=== PATIENT | female | born 1980 | race Caucasian/White ===

== ENCOUNTER 2018-05-15 10:00 | Emergency (ER) | payer MEDICAID ==
[~2018-05-15] VITALS: Ht 165.1 cm; Wt 63.6 kg
[~2018-05-15 10:00] MED LIST: PRED50TA PO
[2018-05-15] MEDS ORDERED: ketorolac tromethamine 15mg/ml inj. IV ONE (10:55)
[2018-05-15] MEDS ORDERED: metoclopramide 5 mg/ml inj IV ONE (10:55)
[2018-05-15] MEDS ORDERED: diphenhydrAMINE 50 mg/ml inj IV ONE (10:55)
[2018-05-15] MEDS ORDERED: normal saline 1000ml 1,000 ML IV STA (11:51)
[2018-05-15 11:56] LABS: BASOPHILS % (AUTO) 0.2 % (0-1); EOSINOPHILS % (AUTO) 0 % (0-6); HEMATOCRIT 50.1 % (35.0-45.0); LYMPHOCYTES % (AUTO) 5.8 % (21-51); MEAN CORPUSCULAR HGB CONC 33.9 % (33.0-36.5); MEAN CORPUSCULAR VOLUME 94.5 FL (78-98); MONOCYTES # (AUTO) 0.5 X10'3 (0-0.9); MONOCYTES % (AUTO) 3.2 % (2-12); NEUTROPHILS # (AUTO) 15.1 X10'3 (1.8-7.7); NEUTROPHILS % (AUTO) 90.8 % (42-75); PLATELET COUNT 176 X10'3 (140-440); RED CELL DISTRIBUTION WIDTH 12.9 % (11.5-14.5); WHITE BLOOD COUNT 16.7 X10'3 (4.5-11.0)
[2018-05-15 12:04] LABS: ALANINE AMINOTRANSFERASE 48 U/L (12-78); ALBUMIN 4.2 G/DL (3.4-5.0); ALBUMIN/GLOBULIN RATIO 1.1 (1.1-1.5); ALKALINE PHOSPHATASE 73 IU/L (46-116); ANION GAP 17 (8-16); ASPARTATE AMINO TRANSFERASE 43 U/L (10-37); BILIRUBIN,TOTAL 0.6 MG/DL (0.1-1.0); BLOOD UREA NITROGEN 9 MG/DL (7-18); BUN/CREATININE RATIO 11.3 (6.6-38.0); CHLORIDE 97 MMOL/L (99-107); GLUCOSE 159 MG/DL (70-104); LIPASE 84 U/L (73-393); SODIUM 140 MMOL/L (135-145); TOTAL CARBON DIOXIDE 25.6 MMOL/L (24-32); TOTAL PROTEIN 7.9 G/DL (6.4-8.2); eGFR 81 ML/MIN
[2018-05-15 12:06] LABS: INR 1.1 INR; PARTIAL THROMBOPLASTIN TIME 23 SECONDS (22-32); PROTHROMBIN TIME 11.4 SECONDS (9.0-12.0)
[2018-05-15] MEDS ORDERED: potassium chloride 10mEq CAPSULE.SA PO STA (12:07)
[2018-05-15] MEDS ORDERED: potassium chloride 10mEq ER tablet PO ONE (12:10)
--- NOTE | 2018-05-15 12:30 | NUR ---
Albert informed that patient is still vomiting. requested another nausea mediaction
[2018-05-15 12:45] LABS: URINE HCG NEGATIVE (NEG)
[2018-05-15] MEDS ORDERED: ONDA4TAB6 PO (13:12)
[2018-05-15 13:51] VITALS: BP 137/78
[2018-05-16] MEDS ORDERED: POTA20TA19 PO (18:02)
[2018-05-16] MEDS ORDERED: METO10TA3 PO (20:58)
== END 2018-05-15 13:53 | disposition home or self-care (01) ==
LOC: ER 10:00
DX: K29.00 Acute gastritis without bleeding (principal); E86.0 Dehydration; F12.90 Cannabis use, unspecified, uncomplicated; Z88.0 Allergy status to penicillin; Z79.899 Other long term (current) drug therapy
CPT/HCPCS: 36415; 80053; 81025; 83690; 85025; 85610; 85730; 96361; 96374; 96375; 99283; J1200; J1885; J2765; J7030; 99284

== ENCOUNTER 2018-05-16 16:09 | Emergency (ER) | payer MEDICAID ==
[~2018-05-16] VITALS: Ht 175.3 cm; Wt 63.6 kg
[~2018-05-16 16:09] MED LIST changes: +ONDA4TAB6 PO
[2018-05-16] MEDS ORDERED: normal saline 1000ML IV soln IVB ONE ×3 (16:35→16:40)
[2018-05-16] MEDS ORDERED: haloperidol lactate 5mg/ml inj IM ONE (16:35)
[2018-05-16] MEDS ORDERED: LORazepam 2 mg/ml vial IV ONE ×2 (16:35→16:40)
[2018-05-16] MEDS ORDERED: diphenhydrAMINE 50 mg/ml inj IV ONE (16:35)
[2018-05-16 16:58] LABS: BASOPHILS # (AUTO) 0.1 X10'3 (0-0.2); BASOPHILS % (AUTO) 0.5 % (0-1); EOSINOPHILS % (AUTO) 0 % (0-6); HEMOGLOBIN 17.3 g/dl (12.0-16.0); LYMPHOCYTES # (AUTO) 1.2 X10'3 (1.1-4.8); LYMPHOCYTES % (AUTO) 7.5 % (21-51); MEAN CORPUSCULAR HEMOGLOBIN 31.7 PG (27.0-31.0); MEAN CORPUSCULAR HGB CONC 33.3 % (33.0-36.5); MEAN CORPUSCULAR VOLUME 95.3 FL (78-98); MEAN PLATELET VOLUME 9.4 FL (7.4-10.4); MONOCYTES # (AUTO) 0.6 X10'3 (0-0.9); MONOCYTES % (AUTO) 3.5 % (2-12); NEUTROPHILS # (AUTO) 14.5 X10'3 (1.8-7.7); NEUTROPHILS % (AUTO) 88.5 % (42-75); PLATELET COUNT 182 X10'3 (140-440); RED BLOOD COUNT 5.46 X10'6 (4.20-5.60); RED CELL DISTRIBUTION WIDTH 12.9 % (11.5-14.5); WHITE BLOOD COUNT 16.4 X10'3 (4.5-11.0)
[2018-05-16 17:13] LABS: ALANINE AMINOTRANSFERASE 45 U/L (12-78); ALBUMIN 4.5 G/DL (3.4-5.0); ALBUMIN/GLOBULIN RATIO 1.1 (1.1-1.5); ALKALINE PHOSPHATASE 79 IU/L (46-116); ANION GAP 18 (8-16); ASPARTATE AMINO TRANSFERASE 40 U/L (10-37); BILIRUBIN,TOTAL 1.3 MG/DL (0.1-1.0); BLOOD UREA NITROGEN 13 MG/DL (7-18); BUN/CREATININE RATIO 12.3 (6.6-38.0); CALCIUM 10.3 MG/DL (8.5-10.1); CHLORIDE 94 MMOL/L (99-107); CREATININE 1.06 MG/DL (0.40-0.90); GLUCOSE 109 MG/DL (70-104); LIPASE 94 U/L (73-393); SODIUM 140 MMOL/L (135-145); TOTAL CARBON DIOXIDE 28.3 MMOL/L (24-32); TOTAL PROTEIN 8.5 G/DL (6.4-8.2); eGFR 58 ML/MIN
[2018-05-16 17:23] LABS: POTASSIUM 2.6 MMOL/L (3.5-5.1)
[2018-05-16] MEDS: potassium 10mEq/100ml NS w/LIDOcaine (10mg/bag) IV SCH ×2 (17:53→18:47)
[2018-05-16] MEDS ORDERED: POTA20TA19 PO (18:02)
[2018-05-16] MEDS ORDERED: METO10TA3 PO (20:58)
[2018-05-16 21:07] VITALS: BP 110/76
== END 2018-05-16 21:09 | disposition home or self-care (01) ==
LOC: ER 16:10
DX: E86.0 Dehydration (principal); E87.6 Hypokalemia; R11.2 Nausea with vomiting, unspecified; F17.210 Nicotine dependence, cigarettes, uncomplicated; F12.10 Cannabis abuse, uncomplicated; Z79.899 Other long term (current) drug therapy
CPT/HCPCS: 36415; 80053; 83690; 85025; 96361; 96365; 96366; 96372; 96375; 96376; 99283; J1200; J1630; J2060; J3480; J7030

== ENCOUNTER 2019-02-10 14:36 | Emergency (ER) | payer MEDICAID ==
[~2019-02-10] VITALS: Ht 175.3 cm; Wt 64.7 kg
[2019-02-10 16:16] LABS: BASOPHILS # (AUTO) 0.1 X10'3 (0-0.2); BASOPHILS % (AUTO) 0.7 % (0-1); EOSINOPHILS # (AUTO) 0.7 X10'3 (0-0.9); EOSINOPHILS % (AUTO) 7.5 % (0-6); HEMATOCRIT 47.5 % (35.0-45.0); HEMOGLOBIN 16.1 g/dl (12.0-16.0); LYMPHOCYTES # (AUTO) 2.3 X10'3 (1.1-4.8); LYMPHOCYTES % (AUTO) 26.2 % (21-51); MEAN CORPUSCULAR HEMOGLOBIN 32.5 PG (27.0-31.0); MEAN CORPUSCULAR HGB CONC 33.9 g/dL (33.0-36.5); MEAN CORPUSCULAR VOLUME 95.6 FL (78-98); MEAN PLATELET VOLUME 8.8 FL (7.4-10.4); MONOCYTES # (AUTO) 0.5 X10'3 (0-0.9); MONOCYTES % (AUTO) 6.2 % (2-12); NEUTROPHILS # (AUTO) 5.1 X10'3 (1.8-7.7); NEUTROPHILS % (AUTO) 59.4 % (42-75); PLATELET COUNT 203 X10'3 (140-440); RED BLOOD COUNT 4.97 X10'6 (4.20-5.60); RED CELL DISTRIBUTION WIDTH 12.7 % (11.5-14.5); WHITE BLOOD COUNT 8.7 X10'3 (4.5-11.0)
[2019-02-10 16:39] LABS: ALANINE AMINOTRANSFERASE 28 U/L (12-78); ALBUMIN/GLOBULIN RATIO 1.1 (1.1-1.5); ALKALINE PHOSPHATASE 68 IU/L (46-116); ANION GAP 9 (8-16); ASPARTATE AMINO TRANSFERASE 21 U/L (10-37); BILIRUBIN,TOTAL 0.4 MG/DL (0.1-1.0); BLOOD UREA NITROGEN 6 MG/DL (7-18); BUN/CREATININE RATIO 7.2 (6.6-38.0); CALCIUM 10.3 MG/DL (8.5-10.1); CHLORIDE 107 MMOL/L (99-107); CREATININE 0.83 MG/DL (0.40-0.90); GLUCOSE 91 MG/DL (70-104); SODIUM 140 MMOL/L (135-145); TOTAL CARBON DIOXIDE 24.3 MMOL/L (24-32); TOTAL PROTEIN 7.6 G/DL (6.4-8.2); eGFR 77 ML/MIN
[2019-02-10] MEDS ORDERED: predniSONE 20 mg tablet PO ONE (17:05)
[2019-02-10] MEDS ORDERED: ipratropium/albuterol 3ml nebule NEB ONE (17:05)
[2019-02-10] MEDS ORDERED: albuterol 2.5 MG/3 ML nebule NEB ONE (17:05)
[2019-02-10] MEDS ORDERED: ALB0.5UD IH (17:13)
[2019-02-10] MEDS ORDERED: PRED20TA PO (17:13)
[2019-02-10] MEDS ORDERED: ALBU8HFA PO (17:13)
[2019-02-10] MEDS ORDERED: AZIT-72 PO (17:13)
[2019-02-10 18:02] VITALS: BP 136/64
== END 2019-02-10 18:21 | disposition home or self-care (01) ==
LOC: ER 14:36
DX: J45.909 Unspecified asthma, uncomplicated (principal); F12.90 Cannabis use, unspecified, uncomplicated; Z87.891 Personal history of nicotine dependence; Z87.01 Personal history of pneumonia (recurrent); Z88.0 Allergy status to penicillin; Z79.899 Other long term (current) drug therapy
CPT/HCPCS: 36415; 71046; 80053; 83605; 85025; 87040; 93005; 94640; 94760; 99284; J7512

== ENCOUNTER 2019-03-01 09:49 | Emergency (ER) | payer MEDICAID ==
[~2019-03-01 09:49] MED LIST changes: +ALB0.5UD IH; +ALBU8HFA PO; +AZIT-72 PO
--- NOTE | 2019-03-01 10:18 | NUR ---
PT PLACED IN GOWN AD PUT ON PULSE OX AND BP CUFF
[2019-03-01] MEDS ORDERED: predniSONE 20 mg tablet PO ONE (10:45)
[2019-03-01] MEDS ORDERED: albuterol 2.5 MG/3 ML nebule NEB ONE (10:45)
[2019-03-01] MEDS ORDERED: ipratropium/albuterol 3ml nebule NEB ONE (10:45)
[2019-03-01] MEDS ORDERED: PRED20TA PO (11:15)
[2019-03-01] MEDS ORDERED: LEVO750T21 PO (11:15)
[2019-03-01] MEDS ORDERED: ALBU18HF2 INH (11:15)
[2019-03-01] MEDS ORDERED: ROBCFL PO (11:20)
[2019-03-01 11:24] VITALS: BP 123/63
== END 2019-03-01 11:25 | disposition home or self-care (01) ==
LOC: ER 09:49
DX: J20.9 Acute bronchitis, unspecified (principal); J44.9 Chronic obstructive pulmonary disease, unspecified; F12.90 Cannabis use, unspecified, uncomplicated; Z87.891 Personal history of nicotine dependence; Z60.2 Problems related to living alone; Z88.0 Allergy status to penicillin; Z79.899 Other long term (current) drug therapy
CPT/HCPCS: 71045; 93005; 94640; 94760; 99283; J7512

== ENCOUNTER 2021-09-26 00:52 | Emergency (ER) | payer MEDICAID ==
[~2021-09-26] VITALS: Ht 175.3 cm; Wt 68.1 kg
[~2021-09-26 00:52] MED LIST changes: -ALB0.5UD IH; +ALBU18HF2 INH; -ALBU8HFA PO; -AZIT-72 PO
[2021-09-26] MEDS: oxyCODONE/APAP 10/325mg tablet PO ONE (02:05)
[2021-09-26] MEDS: ketorolac trometh. 30mg/ml inj. IM ONE (02:05)
[2021-09-26] MEDS ORDERED: OXYC-150 PO (02:06)
[2021-09-26] MEDS: morphine 2 MG/ML inj. syringe IV ONE (02:12)
[2021-09-26 02:48] VITALS: BP 119/86
== END 2021-09-26 02:49 | disposition home or self-care (01) ==
LOC: ER 00:53
DX: S42.032A Displaced fracture of lateral end of left clavicle, initial encounter for closed fracture (principal); F12.90 Cannabis use, unspecified, uncomplicated; Z87.01 Personal history of pneumonia (recurrent); Z72.89 Other problems related to lifestyle; Z60.2 Problems related to living alone; Z88.0 Allergy status to penicillin; Z79.899 Other long term (current) drug therapy; W10.9XXA Fall (on) (from) unspecified stairs and steps, initial encounter; Y93.89 Activity, other specified; Y92.89 Other specified places as the place of occurrence of the external cause; Y99.8 Other external cause status
CPT/HCPCS: 73030; 96372; 99284; J1885

== ENCOUNTER 2023-05-12 16:44 | Emergency (ER) | payer MEDICAID ==
[~2023-05-12] VITALS: Ht 175.3 cm; Wt 59.1 kg
[~2023-05-12 16:44] MED LIST changes: +OXYC-150 PO
[2023-05-12 17:09] LABS: BASOPHILS # (AUTO) 0.2 X10'3 (0-0.2); BASOPHILS % (AUTO) 1.1 % (0-1); EOSINOPHILS % (AUTO) 0.1 % (0-6); HEMATOCRIT 43.4 % (35.0-45.0); HEMOGLOBIN 14.6 g/dl (12.0-16.0); LYMPHOCYTES # (AUTO) 1.1 X10'3 (1.1-4.8); MEAN CORPUSCULAR HEMOGLOBIN 30.7 PG (27.0-31.0); MEAN CORPUSCULAR HGB CONC 33.7 g/dL (33.0-36.5); MEAN PLATELET VOLUME 9.1 FL (7.4-10.4); MONOCYTES # (AUTO) 0.3 X10'3 (0-0.9); MONOCYTES % (AUTO) 1.8 % (2-12); PLATELET COUNT 227 X10'3 (140-440); RED BLOOD COUNT 4.77 X10'6 (4.20-5.60); WHITE BLOOD COUNT 15.6 X10'3 (4.5-11.0)
[2023-05-12 17:23] LABS: ALANINE AMINOTRANSFERASE 20 U/L (12-78); ALBUMIN 4.3 G/DL (3.4-5.0); ALBUMIN/GLOBULIN RATIO 1.2 (1.1-1.5); ALKALINE PHOSPHATASE 61 IU/L (46-116); ANION GAP 14 (8-16); ASPARTATE AMINO TRANSFERASE 17 U/L (10-37); BILIRUBIN,TOTAL 0.7 MG/DL (0.1-1.0); BLOOD UREA NITROGEN 15 MG/DL (7-18); BUN/CREATININE RATIO 14.3 (10.0-20.0); CHLORIDE 102 MMOL/L (99-107); CREATININE 1.05 MG/DL (0.40-0.90); GLUCOSE 147 MG/DL (70-104); LIPASE 16 U/L (16-77); POTASSIUM 3.3 MMOL/L (3.5-5.1); SODIUM 141 MMOL/L (135-145); TOTAL CARBON DIOXIDE 25.1 MMOL/L (24-32); TOTAL PROTEIN 7.9 G/DL (6.4-8.2); eCRCL 65 ML/MIN; eGFR 57 ML/MIN
[2023-05-12] MEDS ORDERED: ketorolac trometh inj. 60 MG/2 ML VIAL IM ONE (18:30)
[2023-05-12] MEDS ORDERED: NAPR-56 PO (18:30)
[2023-05-12] MEDS ORDERED: ONDA4TAB12 PO (18:30)
[2023-05-12] MEDS ORDERED: metoclopramide 5 mg/ml inj IM ONE (18:30)
[2023-05-12] MEDS ORDERED: normal saline 1000ML IV soln IVB ONE (18:40)
[2023-05-12 19:07] VITALS: BP 129/57; PULSE 60; RESP 16; TEMP 98.1; O2SAT 99
== END 2023-05-12 19:09 | disposition home or self-care (01) ==
LOC: ER 16:44
DX: A08.4 Viral intestinal infection, unspecified (principal); F12.10 Cannabis abuse, uncomplicated; Z79.899 Other long term (current) drug therapy
CPT/HCPCS: 36415; 80053; 83690; 85025; 96360; 96372; 99284; J1885; J2765; J7030; 96361